=== PATIENT | female | born 1965 | race Caucasian/White ===

== ENCOUNTER → 2016-09-04 | Outpatient (CLI) | payer BC ==
--- NOTE | 2016-09-05 08:16 | MM ---
Reason for exam: screening (asymptomatic). Last mammogram was performed 2 years and 1 month ago. History: Family history of premenopausal breast cancer in mother at age 55 and breast cancer in maternal aunt. Benign right mammotome panel of the right breast, April 28, 2009. Excisional biopsy of the left breast. Took hormonal contraceptives for 5 years beginning at age 21. Physical Findings: A clinical breast exam by your physician is recommended on an annual basis and results should be correlated with mammographic findings. MG Screening Mammo w CAD Bilateral CC and MLO view(s) were taken. Prior study comparison: July 24, 2014, bilateral MG screening mammo w CAD. April 15, 2009, bilateral diagnostic digital mammog. The breast tissue is heterogeneously dense. This may lower the sensitivity of mammography. Finding: There are typically benign round calcifications in both breasts. Previous mammotome biopsy in the right breast. There is no discrete abnormality. ASSESSMENT: Benign, BI-RAD 2 RECOMMENDATION: Routine screening mammogram of both breasts in 1 year.
== END ==
LOC: RADMAMWWP 07:36
PROVIDERS: ATTEND Obstetrics & Gynecology
DX: Z12.31 Encounter for screening mammogram for malignant neoplasm of breast (principal)

== ENCOUNTER → 2017-08-15 | Outpatient (CLI) | payer BC | END | disposition home or self-care (01) | LOC: PROCWHC3 10:09 | PROVIDERS: ATTEND Family Medicine | DX: J11.1 Influenza due to unidentified influenza virus with other respiratory manifestations (principal) | CPT/HCPCS: 87502 ==

== ENCOUNTER → 2017-11-13 | Outpatient (CLI) | payer BC ==
--- NOTE | 2017-11-14 11:51 | MM ---
Reason for exam: screening (asymptomatic). Last mammogram was performed 1 year and 2 months ago. History: Family history of premenopausal breast cancer in mother at age 55 and breast cancer in maternal aunt. Benign right mammotome panel of the right breast, April 28, 2009. Excisional biopsy of the left breast. Took hormonal contraceptives for 5 years beginning at age 21. Physical Findings: A clinical breast exam by your physician is recommended on an annual basis and results should be correlated with mammographic findings. MG Screening Mammo w CAD Bilateral CC and MLO view(s) were taken. Prior study comparison: September 04, 2016, bilateral MG screening mammo w CAD. July 24, 2014, bilateral MG screening mammo w CAD. The breast tissue is heterogeneously dense. This may lower the sensitivity of mammography. Finding: There are typically benign diffuse/scattered calcifications in both breasts. No suspicious abnormality. Right biopsy marker noted. No significant changes in finding since September 04, 2016 and July 24, 2014. ASSESSMENT: Benign, BI-RAD 2 RECOMMENDATION: Routine screening mammogram of both breasts in 1 year.
== END | disposition home or self-care (01) ==
LOC: RADMAMWWP 07:37
PROVIDERS: ATTEND Obstetrics & Gynecology
DX: Z12.31 Encounter for screening mammogram for malignant neoplasm of breast (principal); Z80.3 Family history of malignant neoplasm of breast
CPT/HCPCS: 77067

== ENCOUNTER → 2017-12-07 | Day surgery (SDC) | payer BC ==
[2017-12-05 11:34] VITALS: BMI 31.1
[~2017-12-07] MED LIST: LACTATED RINGERS 1,000 ML IV SCH; LIDOCAINE 1% 20 ML VIAL (10MG/ML) FOR IV START INTRADERMA ONE; MIDAZOLAM 2 MG/2 ML VIAL ONE; PROPOFOL 10 MG/ML 20 ML VIAL IV ONE; fentaNYL (PF) 50 MCG/ML 2 ML AMP ONE
[2017-12-07 10:01] VITALS: TEMP 98.6
--- NOTE | 2017-12-07 11:20 | P.GSHP ---
History of Present Illness H&P Date: 12/07/17 CHIEF COMPLAINT: Colon screen HISTORY OF PRESENT ILLNESS: The patient is a 52-year-old female who presents for colon screen. Lower endoscopy was offered for further evaluation and management. PAST MEDICAL HISTORY: Please see list. PAST SURGICAL HISTORY: Please see list. MEDICATIONS: Please see list. ALLERGIES: Please see list. SOCIAL HISTORY: No illicit drug use FAMILY HISTORY: No reports of Crohn disease or ulcerative colitis. REVIEW OF ORGAN SYSTEMS: CONSTITUTIONAL: No reports of fevers or chills. PHYSICAL EXAM: VITAL SIGNS: Stable GENERAL: Well-developed pleasant in no acute distress. HEENT: No scleral icterus. Extraocular movements grossly intact. Moist buccal mucosa. NECK: Supple without lymphadenopathy. CHEST: Unlabored respirations. Equal bilateral excursions. CARDIOVASCULAR: Regular rate and rhythm. Distal 2+ pulses. ABDOMEN: Soft, nontender, nondistended. MUSCULOSKELETAL: No clubbing, cyanosis, or edema. ASSESSMENT: 1. Colon screen. PLAN: 1. Recommend proceeding with a lower endoscopy Past Medical History Past Medical History: No Reported History History of Any Multi-Drug Resistant Organisms: None Reported Past Surgical History: Tubal Ligation Past Anesthesia/Blood Transfusion Reactions: No Reported Reaction Smoking Status: Never smoker - Past Family History Mother Family Medical History: Cancer Sister(s) Family Medical History: Cancer Medications and Allergies Home Medications Medication Instructions Recorded Confirmed Type Multivitamins, Thera [Multivitamin 1 each PO DAILY 12/05/17 12/05/17 History (formulary)] buPROPion HCL [Wellbutrin XL] 300 mg PO DAILY 12/05/17 12/07/17 History Allergies Allergy/AdvReac Type Severity Reaction Status Date / Time shellfish derived [Shellfish] Allergy SEVERE Verified 12/05/17 11:30 [facility] - Exam Vital Signs Temp Pulse Resp BP Pulse Ox 98.6 F 81 16 114/79 97 12/07/17 09:59 12/07/17 09:59 12/07/17 09:59 12/07/17 09:59 12/07/17 09:59
--- NOTE | 2017-12-07 11:34 | P.PCN ---
Date of Procedure: 12/07/17 Description of Procedure: PREOPERATIVE DIAGNOSIS: Colonoscopy screening. Family history of colon cancer, mother and grandmother POSTOPERATIVE DIAGNOSIS: Colonoscopy screening. Family history of colon cancer, mother and grandmother OPERATION: Colonoscopy to the ileocecal valve and appendiceal orifice. SURGEON: Marbella Lombardi MD. ANESTHESIA: MAC. INDICATIONS: The patient is a 52-year-old female who presents for initial colonoscopy screening. Benefits and risks were described and informed consent was obtained. DESCRIPTION OF PROCEDURE: The patient had undergone Gatorade, MiraLAX and Dulcolax prep. She had been brought into the operating room and laid in the left lateral decubitus position. After adequate intravenous sedation, the rectum was examined with 2% lidocaine jelly. No external hemorrhoids were encountered. The rectal tone was within normal limits. No lesions were palpated in the rectal vault. An Olympus colonoscope was advanced until the ileocecal valve and appendiceal orifice were clearly viewed. The prep was excellent with clear visualization of the mucosal folds. The scope was removed with visualization of each mucosal fold. No scattered diverticulosis was encountered. No colonic polyps were found. No evidence of focal colitis was found. Retroflexion of the scope demonstrated no grade 1 internal hemorrhoids. The colon was desufflated. The patient had tolerated the procedure well. Withdrawal time was over 6 minutes. FINDINGS: No internal hemorrhoids No external prolapsed hemorrhoids. No arteriovenous malformations. No adenomatous polyps. No focal colitis. No sigmoid diverticulosis RECOMMENDATIONS: Lower endoscopy in 5 years for high-risk family history, 2022 Plan - Discharge Summary New Discharge Prescriptions: No Action buPROPion HCL [Wellbutrin XL] 300 mg PO DAILY Multivitamins, Thera [Multivitamin (formulary)] 1 each PO DAILY Discharge Medication List Multivitamins, Thera [Multivitamin (formulary)] 1 each PO DAILY 12/05/17 [ History] buPROPion HCL [Wellbutrin XL] 300 mg PO DAILY 12/05/17 [History]
[2017-12-07 11:42] VITALS: RESP 18
[2017-12-07 11:52] VITALS: BP 112/76; PULSE 75
== END | disposition home or self-care (01) ==
LOC: ORWHC2ENDO 09:25
PROVIDERS: ATTEND Surgery Plastic and Reconstructive Surgery
DX: Z12.11 Encounter for screening for malignant neoplasm of colon (principal); Z80.0 Family history of malignant neoplasm of digestive organs; F41.9 Anxiety disorder, unspecified; F32.9 Major depressive disorder, single episode, unspecified; Z79.899 Other long term (current) drug therapy; Z91.013 Allergy to seafood; Z98.51 Tubal ligation status
CPT/HCPCS: J2250; J3010; J2704; G0105

== ENCOUNTER → 2019-02-18 | Outpatient (CLI) | payer BC ==
--- NOTE | 2019-02-20 12:07 | MM ---
Reason for exam: screening (asymptomatic). Last mammogram was performed 1 year and 3 months ago. History: Family history of premenopausal breast cancer in mother at age 55 and breast cancer in maternal aunt. Benign right mammotome panel of the right breast, April 28, 2009. Excisional biopsy of the left breast. Took hormonal contraceptives for 5 years beginning at age 21. Physical Findings: A clinical breast exam by your physician is recommended on an annual basis and results should be correlated with mammographic findings. MG 3D Screening Mammo W/Cad Bilateral CC and MLO view(s) were taken. Prior study comparison: November 13, 2017, bilateral MG screening mammo w CAD. September 04, 2016, bilateral MG screening mammo w CAD. The breast tissue is heterogeneously dense. This may lower the sensitivity of mammography. Previous mammotome biopsy in the right breast. There is chronic nodularity in the left breast. No significant changes when compared with prior studies. ASSESSMENT: Benign, BI-RAD 2 RECOMMENDATION: Routine screening mammogram of both breasts in 1 year.
== END | disposition home or self-care (01) ==
LOC: RADMAMWWP 07:01
PROVIDERS: ATTEND Obstetrics & Gynecology
DX: Z12.31 Encounter for screening mammogram for malignant neoplasm of breast (principal); Z80.3 Family history of malignant neoplasm of breast
CPT/HCPCS: 77063; 77067

== ENCOUNTER → 2021-09-09 | Outpatient (CLI) | payer BC ==
--- NOTE | 2021-09-13 08:48 | MM ---
Reason for exam: screening (asymptomatic). Last mammogram was performed 2 years and 7 months ago. History: Patient is postmenopausal. Family history of premenopausal breast cancer in mother at age 55, breast cancer in sister, and breast cancer in maternal aunt. Benign right mammotome panel of the right breast, April 28, 2009. Excisional biopsy of the left breast. Took hormonal contraceptives for 5 years beginning at age 21. Physical Findings: A clinical breast exam by your physician is recommended on an annual basis and results should be correlated with mammographic findings. MG 3D Screening Mammo W/Cad Bilateral CC and MLO view(s) were taken. Prior study comparison: February 18, 2019, bilateral MG 3d screening mammo w/cad. November 13, 2017, bilateral MG screening mammo w CAD. The breast tissue is heterogeneously dense. This may lower the sensitivity of mammography. No significant changes when compared with prior studies. ASSESSMENT: Benign, BI-RAD 2 RECOMMENDATION: Routine screening mammogram of both breasts in 1 year.
== END | disposition home or self-care (01) ==
LOC: RADMAMWWP 07:58
PROVIDERS: ATTEND Family Medicine
DX: Z12.31 Encounter for screening mammogram for malignant neoplasm of breast (principal); Z78.0 Asymptomatic menopausal state; Z80.3 Family history of malignant neoplasm of breast
CPT/HCPCS: 77063; 77067

== ENCOUNTER → 2022-10-04 | Outpatient (CLI) | payer BC ==
--- NOTE | 2022-10-04 08:41 | MM ---
Reason for Exam: Additional evaluation requested from abnormal screening. Last screening mammogram was performed less than 1 month ago. Patient History: Menarche at age 13. First Full-Term at age 23. Postmenopausal. Hormonal Contraceptives, starting at age 21 for 5 years. Excisional Biopsy on the Left side. 04/28/2009, Benign Core Biopsy on the right side. Maternal aunt had breast cancer. Sister had breast cancer. Mother had breast cancer, age 55. Risk Values: Josephine 5 year model risk: 7.5%. NCI Lifetime model risk: 39.7%. Prior Study Comparison: 02/18/2019 Bilateral Screening Mammogram, [facility]. 09/09/2021 Bilateral Screening Mammogram, [facility]. 09/29/2022 Bilateral MG 3D screening mammo w/cad, [facility]. Tissue Density: Left: The breast tissue is heterogeneously dense. This may lower the sensitivity of mammography. Findings: Analyzed By CAD. Upper outer quadrant focal asymmetry incompletely disperses on spot 3-D images. However, the density appears smaller on the CC view than on the MLO view. Dense focal fibroglandular tissue remains a possibility. Further ultrasound evaluation is recommended. Overall Assessment: Incomplete: need additional imaging evaluation, BI-RAD 0 Management: Diagnostic Breast Ultrasound of the left breast. Electronically signed and approved by: Thomas Adams M.D. Radiologist
--- NOTE | 2022-10-04 10:25 | USB ---
Reason for Exam: Additional evaluation requested from abnormal screening. Patient History: Menarche at age 13. First Full-Term at age 23. Postmenopausal. Hormonal Contraceptives, starting at age 21 for 5 years. Excisional Biopsy on the Left side. 04/28/2009, Benign Core Biopsy on the right side. Maternal aunt had breast cancer. Sister had breast cancer. Mother had breast cancer, age 55. Risk Values: Josephine 5 year model risk: 7.5%. NCI Lifetime model risk: 39.7%. Technique: Method: Whole Breast Handheld. Prior Study Comparison: 02/18/2019 Bilateral Screening Mammogram, [facility]. 09/09/2021 Bilateral Screening Mammogram, [facility]. 09/29/2022 Bilateral MG 3D screening mammo w/cad, [facility]. Findings: The whole breast of the left breast, the axilla of the left breast and the retroareolar of the left breast were scanned. A complete US of all four quadrants of the breast, axilla, and retro-areolar region were reviewed. There is a benign 7 mm cyst 1:00 position, 3 cm from the nipple. Possible mammographic correlate. No other solid or cystic lesion. There is benign duct ectasia noted behind the nipple. No axillary lymphadenopathy. Overall Assessment: Probably benign, BI-RAD 3 Management: Diagnostic Mammogram of the left breast in 6 months. 1. Note the patient's very high Josephine score and overall lifetime risk for the development of breast cancer. Consider specialist referral to assess eligibility for a risk reducing agent. In addition, the patient may qualify for future screening with alternating mammogram and breast MRI. 2. Patient should continue monthly self breast exams. A clinical breast exam by your physician is recommended on an annual basis. 3. This exam should not preclude additional follow-up of suspicious palpable abnormalities. Electronically signed and approved by: Thomas Adams M.D. Radiologist
== END | disposition home or self-care (01) ==
LOC: RADMAMWWP 08:14
PROVIDERS: ATTEND Obstetrics & Gynecology
DX: R92.8 Other abnormal and inconclusive findings on diagnostic imaging of breast (principal); Z78.0 Asymptomatic menopausal state; Z80.3 Family history of malignant neoplasm of breast
CPT/HCPCS: 77061; 77065

== ENCOUNTER → 2023-04-11 | Outpatient (CLI) | payer BC ==
--- NOTE | 2023-04-11 09:10 | MM ---
Reason for Exam: Follow-up at short interval from prior study. Last screening mammogram was performed 6 month(s) ago. Patient History: Menarche at age 13. First Full-Term at age 23. Postmenopausal. Hormonal Contraceptives, starting at age 21 for 5 years. Excisional Biopsy on the Left side. 04/28/2009, Benign Core Biopsy on the right side. Maternal aunt had breast cancer, age 55. Sister had breast cancer, age 53. Mother had breast cancer, age 50. Risk Values: Josephine 5 year model risk: 7.5%. NCI Lifetime model risk: 39.7%. Prior Study Comparison: 09/09/2021 Bilateral Screening Mammogram, [facility]. 09/29/2022 Bilateral MG 3D screening mammo w/cad, [facility]. 10/04/2022 Left MG 3D work up w/cad , [facility]. Tissue Density: Left: The breast tissue is heterogeneously dense. This may lower the sensitivity of mammography. Findings: Analyzed By CAD. Pattern appears stable. No significant interval change. Benign calcification is present. No suspicious groups of microcalcifications, spiculated or lobular masses, architectural distortion or other secondary signs of malignancy are mammographically apparent. Overall Assessment: Benign, BI-RAD 2 Management: Screening Mammogram of both breasts in 6 months. A negative mammogram report should not preclude additional follow up of suspicious palpable abnormalities. Patient should continue monthly self breast exam. A clinical breast exam by your physician is recommended on an annual basis and results should be correlated with mammographic findings. Electronically signed and approved by: Familia Desouza D.O. Radiologis
== END | disposition home or self-care (01) ==
LOC: RADMAMWWP 06:58
PROVIDERS: ATTEND Obstetrics & Gynecology
DX: R92.8 Other abnormal and inconclusive findings on diagnostic imaging of breast (principal); Z78.0 Asymptomatic menopausal state; Z80.3 Family history of malignant neoplasm of breast
CPT/HCPCS: 77061; 77065

== ENCOUNTER → 2023-11-16 | Outpatient (CLI) | payer BC ==
--- NOTE | 2023-11-19 11:53 | MM ---
Reason for Exam: Screening (asymptomatic). Last mammogram was performed 1 year(s) and 1 month(s) ago. Patient History: Menarche at age 13. First Full-Term at age 23. Postmenopausal. Patient has history of breast feeding. Hormonal Contraceptives, starting at age 21 for 5 years. Excisional Biopsy on the Left side. 04/28/2009, Benign Core Biopsy on the right side. Maternal aunt had breast cancer, age 55. Sister had breast cancer, age 53. Mother had breast cancer, age 50. Risk Values: Josephine 5 year model risk: 7.8%. NCI Lifetime model risk: 39.0%. Prior Study Comparison: 09/04/2016 Bilateral Screening Mammogram, [facility]. 11/13/2017 Bilateral Screening Mammogram, [facility]. 02/18/2019 Bilateral Screening Mammogram, [facility]. 09/09/2021 Bilateral Screening Mammogram, [facility]. 09/29/2022 Bilateral MG 3D screening mammo w/cad, [facility]. 10/04/2022 Left MG 3D work up w/cad LT, [facility]. 04/11/2023 Left MG 3D diag mammo w/cad LT, [facility]. Tissue Density: The breasts are heterogeneously dense, which may obscure small masses. Findings: Analyzed By CAD. Right breast: There is no suspicious group of microcalcifications or new suspicious mass. Left breast: There is no suspicious group of microcalcifications or new suspicious mass. Overall Assessment: Negative, BI-RAD 1 Management: Screening Mammogram of both breasts in [address] [facility] will attempt to contact patient to return for supplemental views and ultrasound if indicated. Patient should continue monthly self-breast exams. A clinical breast exam by your physician is recommended on an annual basis. This exam should not preclude additional follow-up of suspicious palpable abnormalities. Note on Josephine scores and lifetime risk: 1. A Josephine score greater than 3% is considered moderate risk. If this is the case, consider specialist referral to assess eligibility for a risk reducing agent. 2. If overall lifetime risk for the development of breast cancer is 20% or higher, the patient may qualify for future screening with alternating mammogram and breast MRI. Electronically signed and approved by: Jose Cruz Weathers DO
== END | disposition home or self-care (01) ==
LOC: RADMAMWWP 07:41
PROVIDERS: ATTEND Obstetrics & Gynecology
DX: Z12.31 Encounter for screening mammogram for malignant neoplasm of breast (principal); Z78.0 Asymptomatic menopausal state; Z80.3 Family history of malignant neoplasm of breast
CPT/HCPCS: 77063; 77067

== ENCOUNTER → 2024-12-10 | Outpatient (CLI) | payer BC ==
--- NOTE | 2024-12-10 07:44 | MM ---
Reason for Exam: Screening (asymptomatic). Last mammogram was performed 1 year(s) and 1 month(s) ago. Patient History: Menarche at age 13. First Full-Term at age 23. Postmenopausal. Patient has history of breast feeding. Hormonal Contraceptives, starting at age 21 for 5 years. Excisional Biopsy on the Left side. 04/28/2009, Benign Core Biopsy on the right side. Maternal aunt had breast cancer, age 55. Sister had breast cancer, age 53. Mother had breast cancer, age 50. Risk Values: Josephine 5 year model risk: 8.1%. NCI Lifetime model risk: 38.3%. Prior Study Comparison: 10/04/2022 Left MG 3D work up w/cad LT, [facility]. 04/11/2023 Left MG 3D diag mammo w/cad LT, [facility]. 11/16/2023 Bilateral MG 3D screening mammo w/cad, [facility]. Tissue Density: The breasts are heterogeneously dense, which may obscure small masses. Findings: Analyzed By CAD. Right breast biopsy clip. Right breast: There is no suspicious group of microcalcifications or new suspicious mass. Left breast: There is no suspicious group of microcalcifications or new suspicious mass. Overall Assessment: Benign, BI-RAD 2 Management: Screening Mammogram of both breasts in [address] [facility] will attempt to contact patient to return for supplemental views and ultrasound if indicated. Patient should continue monthly self-breast exams. A clinical breast exam by your physician is recommended on an annual basis. This exam should not preclude additional follow-up of suspicious palpable abnormalities. Note on Josephine scores and lifetime risk: 1. A Josephine score greater than 3% is considered moderate risk. If this is the case, consider specialist referral to assess eligibility for a risk reducing agent. 2. If overall lifetime risk for the development of breast cancer is 20% or higher, the patient may qualify for future screening with alternating mammogram and breast MRI. [facility], , 12/10/2024 7:41 AM. Electronically signed and approved by: Jose Cruz Weathers DO
== END | disposition home or self-care (01) ==
LOC: RADMAMWWP 07:01
PROVIDERS: ATTEND Family Medicine
DX: Z12.31 Encounter for screening mammogram for malignant neoplasm of breast (principal); R92.333 Mammographic heterogeneous density, bilateral breasts; Z78.0 Asymptomatic menopausal state; Z80.3 Family history of malignant neoplasm of breast
CPT/HCPCS: 77063; 77067

== ENCOUNTER 2024-12-31 08:59 | Day surgery (SDC) | payer BC ==
[~2024-12-31 08:59] MED LIST changes: -LACTATED RINGERS 1,000 ML IV SCH; +LIDOCAINE 1% (10MG/ML) FOR IV START INTRADERMA PRN; -LIDOCAINE 1% 20 ML VIAL (10MG/ML) FOR IV START INTRADERMA ONE; -MIDAZOLAM 2 MG/2 ML VIAL ONE; -PROPOFOL 10 MG/ML 20 ML VIAL IV ONE; -fentaNYL (PF) 50 MCG/ML 2 ML AMP ONE
[2024-12-31] MEDS: LACTATED RINGERS 1,000 ML IV SCH (09:46)
[2024-12-31] MEDS: IV FLUID CONTINUATION 1,000 ML IV ONE (09:50)
[2024-12-31 09:55] VITALS: TEMP 97.4
[2024-12-31] MEDS ORDERED: PROPOFOL 10 MG/ML 20 ML VIAL IV ONE (10:27)
--- NOTE | 2024-12-31 10:42 | P.PCN ---
Date of Procedure: 12/31/24 Procedure(s) Performed: BRIEF HISTORY: Patient is a 59-year-old pleasant white female scheduled for an elective colonoscopy as a part of screening for colon cancer and family history of colon cancer. Her mother was diagnosed with colon cancer at age 57. PROCEDURE PERFORMED: Colonoscopy. PREOPERATIVE DIAGNOSIS: Screening for colon cancer and family history of colon cancer. IV sedation per Anesthesia. PROCEDURE: After informed consent was obtained, the patient, was brought into the endoscopy unit. IV sedation was administered by Anesthesia under continuous monitoring. Digital rectal examination was normal. Initially the Olympus CF-160 flexible video colonoscope was then inserted in the rectum, gradually advanced into the cecum without any difficulty. Careful examination was performed as the scope was gradually being withdrawn. Ileocecal valve and the appendiceal orifice were visualized and appeared normal. Prep was excellent. Mucosa of the cecum, ascending colon, transverse colon, descending colon, sigmoid colon, and rectum appeared normal. Retroflexion was performed in the rectum and no lesions were seen. The patient tolerated the procedure well. IMPRESSION: Normal-appearing colon from rectum to cecum with no evidence of colorectal neoplasia RECOMMENDATIONS: Findings of this examination were discussed with the patient as well as her family. She was advised to have repeat screening colonoscopy in 5 years because of the family history of colon cancer.
[2024-12-31 11:13] VITALS: BP 132/83; PULSE 75; RESP 16
== END 2024-12-31 11:22 | disposition home or self-care (01) ==
LOC: ORWHC2ENDO 08:59
PROVIDERS: ATTEND Internal Medicine Gastroenterology
DX: Z12.11 Encounter for screening for malignant neoplasm of colon (principal); M19.90 Unspecified osteoarthritis, unspecified site; F32.A Depression, unspecified; Z79.899 Other long term (current) drug therapy; Z80.0 Family history of malignant neoplasm of digestive organs; Z91.013 Allergy to seafood
CPT/HCPCS: 45378; J2704